=== PATIENT | female | born 1975 | race Caucasian/White ===

== ENCOUNTER 2024-08-06 19:37 | Emergency (ER) | payer BC, SELFPAY ==
[2024-08-06 19:39] VITALS: BP 169/87
--- NOTE | 2024-08-06 20:08 | ED.GENMED ---
History of Present Illness
General
Chief Complaint: Eye Problems
Source: patient
Time Seen by Provider: 08/06/24 19:57
History of Present Illness
History of Present Illness:
49-year-old female presenting to the emergency department for evaluation of right eye pain, erythema, photosensitivity, increased tearing since last night while she was removing a contact lens. Patient states symptoms got worse today which is what
prompted her visit to the ER. Currently does not have contact lens in place. No other concerns presently.
Past History
Past History
ED Past Medical History: None
ED Past Surgical History: and Other
Social History
Tobacco: Non-smoker
Alcohol: None
Drug: None
Personal: Single
Living: with family
Employment: Employed
Review of Systems
Review of Systems
All Other Systems: ROS reviewed and negative except as documented in HPI and ROS
Phy Exam
Physical Exam
Physical Exam:
GENERAL: Alert , in no apparent distress
EYE: conjunctiva injected, photophobic, pupuls 3mm b/l, no periorbital edema
Head: Normocephalic atraumatic
NECK: Supple,
ENT: mmm.
LUNGS: no acute respiratory distress
NEUROLOGICAL: Alert and oriented
SKIN: Warm and dry, skin intact.
MUSCULOSKELETAL: well perfused.
PSYCH: Normal and appropriate interaction.
Scores
Heart Failure Risk
Heart Failure Risk Score: Not Applicable
Heart Score for Chest Pain Patients
STEMI patient?: Not applicable
Withdrawal Assessment of Alcohol
Withdrawal Assessment Completed?: Not applicable
Course
Orders/Labs/Results
Orders:
Orders
08/06/24 20:27
Tetracaine HCl [Tetracaine 0.5% Ophthalmic Solution] 1 drop .ROUTE .STK-MED ONE
08/06/24 20:28
Purified Water Eye Wash [Dacriose Eye Wash Solution] 120 ml .ROUTE .STK-MED ONE
Vital Signs
Initial and Last Documented VS:
Initial Vital Signs
Temp Pulse Resp BP Pulse Ox
97.5 F 94 16 169/87 98
08/06/24 19:39 08/06/24 19:39 08/06/24 19:39 08/06/24 19:39 08/06/24 19:39
Last Documented Vital Signs
Temp Pulse Resp BP Pulse Ox
97.5 F 83 18 131/84 98
08/06/24 19:39 08/06/24 20:16 08/06/24 20:16 08/06/24 20:16 08/06/24 19:39
MDM/Problems Addressed
Differential Diagnosis Includes:
corneal abrasion, foreign body, conjunctivitis, glaucoma considered but minimal concern
MDM/Problems Addressed:
49-year-old female presenting to the emergency department for evaluation of right eye pain/discomfort since attempting to remove her contact lens last night. Patient with conjunctival injection here and increased tearing. Fluorescein stain did
reveal a less than 1 mm corneal abrasion at the 9 o'clock position just lateral to the pupil. No foreign bodies. At this time we will treat with ofloxacin drops. Patient had significant relief of pain with tetracaine instilled. Information for
ophthalmology provided given patient's increased risk using contact lenses. Advise she discontinue use of contact lens while symptomatic. Aware of return precautions to the ER but otherwise stable for discharge home.
*Pulse Oximetry
Patient hypoxic: no
*Critical Care Note
Total Time (30-74mins, 75-104mins- exclusive of procedures): Not Applicable
ED Attending Note
-
Portions of this chart may have been created with voice recognition software.� Occasional wrong word or��sound alike� substitutions may have occurred due to the inherent limitations of voice recognition software.
Discharge Plan
Departure
Patient Disposition: Home (Routine Discharge)
Date of Disposition: 08/06/24
Time of Disposition: 20:08
Patient with high blood pressure during this ER visit?: Yes
Discharge Problem:
Corneal abrasion of right eye due to contact lens
Instructions: Corneal Abrasion (DC)
Prescriptions:
New
ofloxacin [Ocuflox] 0.3 % drops
2 drp ophthalmic (eye) QID 5 Days Qty: 10 0RF
No Action
amoxicillin-pot clavulanate 875 MG/125 MG tablet
1 tab PO BID Qty: 20 0RF
Referrals:
Adalberto Marx MD [Active] - (Please call in the morning for an appointment)
Stand Alone Forms: Return to Work
Interventions
Interventions:
*Risk Screen - Suicide Last Done: 08/06/24 19:39
*General Assessment Last Done: 08/06/24 19:39
*Neglect/Abuse Screening Last Done: 08/06/24 19:39
*Nursing Disposition Last Done: 08/06/24 20:16
Discharge Date and Time
Discharge Date/Time: 08/06/24 20:22
Print Language: [place]
[2024-08-06 20:15] VITALS: BP 131/84
[2024-08-06 20:16] VITALS: BP 131/84
== END 2024-08-06 20:22 | disposition home or self-care (01) ==
LOC: EMR 19:37
PROVIDERS: EMERGENCY PHYSICIAN Student in an Organized Health Care Education/Training Program; FAMILY PHYSICIAN Nurse Practitioner Primary Care
DX: H18.821 Corneal disorder due to contact lens, right eye (principal)
CPT/HCPCS: 99282